=== PATIENT | male | born 1950 | race African-American/Black ===

== ENCOUNTER 2016-12-16 10:37 | Emergency (ER) | payer BC ==
--- NOTE | ~2016-12-16 | CN ---
Consultation Report [facility] [address] [place]. [address] NAME: LEE ANN HAZEL : [birth year] STATUS : [facility] PAT#: [id number] AGE: 65 ADM/REG DATE : 12/16/16 MR#: [id number] REPORT SERV DATE: 12/17/16 DICTATED BY: ANNIE VALDES DATE: 12/17/16 REPORT STATUS : Draft TRANSCRIBED BY: MODL DATE: 12/17/16 PULMONARY CONSULTATION DATE OF CONSULTATION: 12/16/2016 CHIEF COMPLAINT: Night sweats for three nights. HISTORY OF PRESENT ILLNESS: Mr. Winters is a previously healthy 65-year-old gentleman with a past medical history of smoking, who comes in with three days of having nights sweats, a new cough which has been going on for weeks, no worsening shortness of breath. The patient states that overall he does not feel any symptoms, other than these night sweats which have been progressively getting worse and that is when he presented to the emergency room. The patient stated that he presented to an urgent care center in the last 48 hours and was told he had a viral illness and that this should get better. No chest x-ray was done at that time. CT scan was done here, which shows a large left upper lobe 7 cm lung mass with what looks to be a postobstructive pneumonia. PAST MEDICAL HISTORY: Tobacco abuse. MEDICATIONS: No medications on file, the patient states he takes none. ALLERGIES: NO KNOWN DRUG ALLERGIES. SOCIAL HISTORY: The patient is , with kids. He is retired, he worked in the [employer] industry. He has been smoking since 1968 and around three years ago, he has cut down to less than one pack per day. Now, he is mostly smoking cigars; however, he is still smoking. FAMILY HISTORY: Other family members with coronary artery disease and diabetes. REVIEW OF SYSTEMS: All pertinent review of systems reviewed and is otherwise negative. PHYSICAL EXAMINATION: VITAL SIGNS: Afebrile, heart rate around 80s and 90s, respiratory rate around 15 to 20, oxygen saturation 98% on room air, blood pressure 120s over 60s. GENERAL: The patient is alert and oriented, sitting upright in bed in the emergency room, in no acute distress. HEENT: No cervical lymphadenopathy. PULMONARY: Lungs are clear, except with the left upper lobe crackle which is mild. No wheezing. CARDIAC: Regular rate. No murmurs. ABDOMEN: Soft, nontender, nondistended. EXTREMITIES: No lower extremity edema. Peripheral pulses noted. NEUROLOGIC: No focal neurological deficits. Consultation Report [place] [id number] [place] [id number] NAME: LEE ANN HAZEL : 50 STATUS : DEP PAT#: [id number] AGE: 65 ADM/REG DATE : 12/16/16 MR#: [id number] REPORT SERV DATE: 12/17/16 DICTATED BY: ANNIE VALDES DATE: 12/17/16 REPORT STATUS : Draft TRANSCRIBED BY: MODAnastasia DATE: 12/17/16 LABORATORY EXAMINATION: Normal kidney function and electrolytes, albumin 2.5, alkaline phosphatase 243. White blood cell count 22,000 with neutrophilia, mild anemia, platelet count is 102 and in 2016, it was 88. IMAGING DATA: CT scan of the lung shows a large left upper lobe hilar mass, concerning for a primary lung carcinoma. The patient also seems to have cirrhosis on that CT scan. ASSESSMENT AND PLAN: Mr. Hazel is a previously healthy 65-year-old male, who has a smoking history, who presents with night sweats and what is probably clinically a postobstructive pneumonia. At this moment in time, we will start him on Augmentin for that. However, we discussed the hilar mass and the need to biopsy that with the patient. 1. Postobstructive pneumonia: At this moment in time, we will start Augmentin, prescription has been written. 2. Left upper lobe hilar mass with possible necrosis, concerning for a primary lung carcinoma. At this moment in time, we will attempt to get a bronchoscopy with EBUS navigation in the next couple of days as an outpatient. This has already been arranged, the patient is aware of the date and time of this. The patient states he is not on any aspirin and so forth. The patient's best contact information is . The patient shall have a followup appointment with me in one month; however, we will review the results prior to that. 3. Probable new diagnosis of cirrhosis. The patient denied having alcohol use. He does have a low platelet count, this will be needing further evaluation. On CT scan, he has no ascites, however. No elevated bilirubin. Thank you very much for this consultation and allowing us to consult on this matter, please call us with any further questions or concerns. HFQ/MODL Annie Valdes MD / [id number] CC: Summer Hazel M.D.
[~2016-12-16 10:37] MED LIST: COZAAR100 MG PO; MAGOX4 PO; MOBIC15 MG PO; POTASSIUM PO
[2016-12-16 12:35] LABS: BASOPHILS 0.1 %; BASOPHILS ABSOLUTE 0.03 10/3/uL (0.0-0.16); EOSINOPHILS 0.4 %; HEMATOCRIT 36.5 % (40.0-51.0); HEMOGLOBIN 12.7 g/dL (13.6-17.8); IMMATURE GRANULOCYTES 0.7 %; IMMATURE GRANULOCYTES ABSOLUTE 0.15 10/3/uL (0.0-0.11); LYMPHOCYTES 6.5 %; LYMPHOCYTES ABSOLUTE 1.48 10/3/uL (0.67-4.30); MEAN CORPUS HGB CONC 34.8 g/dL (32.0-36.0); MEAN CORPUSCULAR HEMOGLOB 31.7 pg (26.0-34.0); MEAN PLATELET VOLUME 12.2 fL (9.2-13.0); MONOCYTES 5.7 %; MONOCYTES ABSOLUTE 1.29 10/3/uL (0.21-1.20); NEUTROPHILS 86.6 %; NEUTROPHILS ABSOLUTE 19.72 10/3/uL (2.02-8.40); PLATELET COUNT 102 10/3/uL (150-400); RBC DISTRIBUTION WIDTH 15.2 % (12.0-16.0); RED CELL COUNT 4.01 10/6/uL (4.7-6.1)
[2016-12-16 12:36] LABS: ER CBC TAT 0 Hrs 14 Mins; MANUAL DIFF NO %; WHITE BLOOD CELLS 22.8 10/3/uL (4.5-10.5)
[2016-12-16 12:39] LABS: BUN (BLOOD UREA NITROGEN) 12 MG/DL (6-23); CALCIUM, SERUM 8.7 MG/DL (8.5-10.4); CHLORIDE, SERUM 106 MMOL/L (96-112); CO2 (CARBON DIOXIDE) 24 MMOL/L (24-34); CREATININE 1.02 MG/DL (0.70-1.30); GFR AFRICAN AMERICAN 89 ML/MIN (>=60); GFR NON AFRICAN AMERICAN 77 ML/MIN (>=60); GLUCOSE, SERUM 79 MG/DL (60-99); POTASSIUM, SERUM 3.7 MMOL/L (3.5-5.3); SGOT(AST) 21 U/L (5-40); SGPT(ALT) 26 U/L (5-65); SODIUM, SERUM 140 MMOL/L (135-148); TOTAL BILIRUBIN 0.6 MG/DL (0-1.2); TOTAL PROTEIN 8.1 G/DL (6.0-8.5)
[2016-12-16 12:40] LABS: A/G RATIO 0.4 (0.7-1.9); ALBUMIN 2.5 G/DL (3.5-5.0); ALKALINE PHOSPHATASE 243 U/L (45-117); GLOBULIN 5.6 G/DL (2.5-4.1)
[2017-01-09] MEDS ORDERED: POTASSIUM GLUCO99 MG (14:28)
[2017-01-09] MEDS ORDERED: ANOROELLIPTA INH (14:29)
[2017-01-09] MEDS ORDERED: MAGOX4 PO (14:29)
[2017-01-09] MEDS ORDERED: ENDOCET1 TA3 PO (14:30)
[2017-01-09] MEDS ORDERED: METHOC750B PO (14:31)
== END 2016-12-16 16:57 | disposition home or self-care (01) ==
LOC: ER 10:37
PROVIDERS: Emergency Medicine
DX: R91.8 Other nonspecific abnormal finding of lung field (principal); D72.829 Elevated white blood cell count, unspecified; F17.200 Nicotine dependence, unspecified, uncomplicated; Z79.899 Other long term (current) drug therapy
CPT/HCPCS: 71020; 71260; 80053; 85025; 93005; 96372; 99284; A9270-GY; J1885; Q9967

== ENCOUNTER 2016-12-19 09:24 | Day surgery (SDC) | payer BC, MEDICARE ==
--- NOTE | ~2016-12-19 | EGD ---
EGD REPORT [facility] [address] [place] [address] NAME: LEE ANN HAZEL : 50 STATUS : [facility]#: [id number] AGE: 65 ADM/REG DATE : 12/19/16 MR#: [id number] REPORT SERV DATE: 12/19/16 DICTATED BY: TYRONE KIRBY DATE: 12/19/16 REPORT STATUS : Draft [facility]: [facility] DATE: 12/19/16 Pulmonology Patient Name: Lee Ann Hazel Procedure Date: 12/19/2016 12:43 PM Date of : 1950 Attending MD: JASSI KIRBY MD Procedure Date No Time: 12/19/2016 Procedure: EBUS/NAVIGATION BRONCHOSCOPY Indications: LAKHWINDER lung mass Providers: JASSI KIRBY MD Referring MD: LEWIS PETERS Medicines: Lidocaine 2% 20 mL Complications: No immediate complications Procedure: Pre-Anesthesia Assessment: - A History and Physical has been performed. Patient meds and allergies have been reviewed. The risks and benefits of the procedure and the sedation options and risks were discussed with the patient. All questions were answered and informed consent was obtained. Patient identification and proposed procedure were verified prior to the procedure by the physician and the nurse in the pre-procedure area in the procedure room. Mental Status Examination: alert and oriented. Airway Examination: normal oropharyngeal airway. Respiratory Examination: clear to auscultation. CV Examination: normal and RRR, no murmurs, no S3 or S4. ASA Grade Assessment: III - A patient with severe systemic disease. After reviewing the risks and benefits, the patient was deemed in satisfactory condition to undergo the procedure. The anesthesia plan was to use general anesthesia. Immediately prior to administration of medications, the patient was re-assessed for adequacy to receive sedatives. The heart rate, respiratory rate, oxygen saturations, blood pressure, adequacy of pulmonary ventilation, and response to care were monitored throughout the procedure. The physical status of the patient was re-assessed after the procedure. - ASA Grade Assessment: III - A patient with severe systemic disease. After obtaining informed consent,The procedure was accomplished without difficulty. The patient tolerated the procedure well. the Bronchoscope was introduced through the and advanced to the. the BF [id number] was introduced through the and advanced to the. Findings: EGD REPORT [address] [place]. [address] NAME: LEE ANN HAZEL : 50 STATUS : REG [facility] PAT#: [id number] AGE: 65 ADM/REG DATE : 12/19/16 MR#: [id number] REPORT SERV DATE: 12/19/16 DICTATED BY: TYRONE KIRBY DATE: 12/19/16 REPORT STATUS : Draft TRANSCRIBED BY: [employer] DATE: 12/19/16 The endotracheal tube is in good position. The visualized portion of the trachea is of normal caliber. The jaye is sharp. The tracheobronchial tree was examined to at least the first subsegmental level. Bronchial mucosa and anatomy are normal; there are no endobronchial lesions, and no secretions. EBUS TBNA of lymph node level 11R x 4 passes for cytology EBUS TBNA of lymph node level 7 x 4 passes for cytology EBUS TBNA of lymph node level 4L x 3 passes for cytology EBUS TBNA of lymph node level 11L x 4 passes for cytology Bronchoalveolar lavage was performed in the left upper lobe of the lung and sent for routine cytology. 180 mL of fluid were instilled. 40 mL were returned. The return was blood-tinged. Endobronchial biopsies were performed in the left upper lobe of the lung using a forceps and sent for histopathology examination. Five samples were obtained. Brushings were obtained in the left upper lobe of the lung and sent for routine cytology. One sample was obtained. The FiO2 was lowered to less than 40% and argon plasma coagulation therapy (0.8 L/min, 15 Bobby) was applied to the friable endobronchial lesion for destruction of tissue and hemostasis. Impression: Rapid On-Site Evaluation (PIO): Preliminary cytology is POSITIVE for malignancy (final results are pending). Recommendation: - Await test results. - Chest X-ray post-procedure. - Follow up with referring physician. - Refer to/consult with Oncology. - PET scan. - MRI of the brain with and without contrast - Complete pulmonary function tests to assess operability. Attending Participation: I personally performed the entire procedure. JASSI KIRBY MD 12/19/2016 1:49 PM This report has been signed electronically. Number of Addenda: 0 Note Initiated On: 12/19/2016 12:43 PM [address] [id number]
[2016-12-19 10:00] LABS: HEMATOCRIT 37.3 % (40.0-51.0); HEMOGLOBIN 12.9 g/dL (13.6-17.8); MEAN CORPUS HGB CONC 34.6 g/dL (32.0-36.0); MEAN CORPUSCULAR HEMOGLOB 30.6 pg (26.0-34.0); MEAN CORPUSCULAR VOLUME 88.6 fL (80-100); PLATELET COUNT 113 10/3/uL (150-400); RBC DISTRIBUTION WIDTH 15.3 % (12.0-16.0); RED CELL COUNT 4.21 10/6/uL (4.7-6.1); WHITE BLOOD CELLS 24.9 10/3/uL (4.5-10.5)
[2016-12-19 10:01] LABS: MANUAL DIFF YES %
[2016-12-19 10:07] LABS: PARTIAL THROMBO TIME 32.1 SEC (22.5-37.2)
[2016-12-19 10:08] LABS: INTERNATIONAL NORMAL RATI 1.2 UNITS (-); PROTIME (NOT ORD) 15.2 SEC (12.0-14.5)
[2016-12-19 10:23] LABS: BAND NEUTROPHILS 14 %; LYMPHOCYTES 9 %; LYMPHOCYTES ABSOLUTE (CALC) 2.24 10/3/uL (0.67-4.30); MONOCYTES 2 %; NEUTROPHILS ABSOLUTE (CALC) 22.16 10/3/uL (2.02-8.40); PLATELET ESTIMATE SLT DEC (ADEQUATE); RBC MORPHOLOGY NORM (NORMAL); SEGMENTED NEUTROPHIL (0) 75 %; TOTAL NUCLEATED CELLS 100; TOXIC GRANULATION 1+
[2017-01-09] MEDS ORDERED: POTASSIUM GLUCO99 MG (14:28)
[2017-01-09] MEDS ORDERED: MAGOX4 PO (14:29)
[2017-01-09] MEDS ORDERED: ANOROELLIPTA INH (14:29)
[2017-01-09] MEDS ORDERED: ENDOCET1 TA3 PO (14:30)
[2017-01-09] MEDS ORDERED: METHOC750B PO (14:31)
== END 2016-12-19 23:59 | disposition home or self-care (01) ==
LOC: DMU 09:24
PROVIDERS: Internal Medicine
PROC: 07974ZX Drainage of Thorax Lymphatic, Percutaneous Endoscopic Approach, Diagnostic (ICD-10-PCS; principal; 2016-12-19 11:30)
PROC: BB4CZZZ Ultrasonography of Mediastinum (ICD-10-PCS; 2016-12-19 11:30)
PROC: 0B988ZX Drainage of Left Upper Lobe Bronchus, Via Natural or Artificial Opening Endoscopic, Diagnostic (ICD-10-PCS; 2016-12-19 11:30)
PROC: 0BB88ZX Excision of Left Upper Lobe Bronchus, Via Natural or Artificial Opening Endoscopic, Diagnostic (ICD-10-PCS; 2016-12-19 11:30)
PROC: 0BBG8ZX Excision of Left Upper Lung Lobe, Via Natural or Artificial Opening Endoscopic, Diagnostic (ICD-10-PCS; 2016-12-19 11:30)
PROC: 0B5G8ZZ Destruction of Left Upper Lung Lobe, Via Natural or Artificial Opening Endoscopic (ICD-10-PCS; 2016-12-19 11:30)
DX: C34.12 Malignant neoplasm of upper lobe, left bronchus or lung (principal); N40.0 Benign prostatic hyperplasia without lower urinary tract symptoms; K76.6 Portal hypertension; K74.60 Unspecified cirrhosis of liver; F10.21 Alcohol dependence, in remission; F12.90 Cannabis use, unspecified, uncomplicated; F17.290 Nicotine dependence, other tobacco product, uncomplicated; D64.9 Anemia, unspecified; Z79.1 Long term (current) use of non-steroidal anti-inflammatories (NSAID); Z79.899 Other long term (current) drug therapy; Z79.2 Long term (current) use of antibiotics; Z98.890 Other specified postprocedural states; Z86.010 Personal history of colon polyps
CPT/HCPCS: 71010; 85025; 85610; 85730; 88112; 88173; 88305; 88333; 88341; 88342; 93005; A9270-GY; C1725; J2250; J2405; J2710; J3010

== ENCOUNTER 2017-01-16 18:00 | Emergency (ER) | payer BC, MEDICARE ==
--- NOTE | ~2017-01-16 | CN ---
Consultation Report [facility] [address] [place]. [address] NAME: LEE ANN HAZEL : 50 STATUS : [facility]#: [id number] AGE: 66 ADM/REG DATE : 01/16/17 MR#: [id number] REPORT SERV DATE: 01/17/17 DICTATED BY: TYLER MCKEON DATE: 01/16/17 REPORT STATUS : Draft TRANSCRIBED BY: MODAnastasia DATE: 01/16/17 DATE OF CONSULTATION: CONTINUATION: TOTAL CRITICAL CARE TIME: 92 minutes. REASON FOR EVALUATION: Acute stroke. HISTORY OF PRESENT ILLNESS: This is a 66-year-old male, who was brought to the emergency room with difficulty speaking and right-sided weakness. The patient's son and daughter provided additional history. The last known well appears to have been "four hours ago," however, it is quite possible that the patient's symptoms started earlier. The last time this family spoke to the patient was the night prior to admission. As per the patient's son, the patient was able to walk to the door to let him in, however, at that time was having difficulty speaking and was having right-sided weakness. As per paramedics who brought the patient to the hospital, his right-sided weakness seems to have evolved and became more pronounced. In the emergency room, the patient was noted to have no difficulty moving his right leg, however, had difficulty moving his right arm, right-sided neglect, and aphasia. The patient was taken to the CT on emergency basis, which showed evidence of two hypodense areas, one in the left middle cerebral artery which appeared to involve frontal and temporal lobe. He had area most likely subacute stroke in the right cerebellum. The patient's MRI showed no evidence of additional lesions; however, MRI was terminated in view to expedite transfer of the patient to [facility] [place]. The patient was transferred to the [place] after his case was discussed with stroke neurologist, Dr. Edwrads. His CTA of head showed evidence of high-grade stenosis or occlusion of anterior cerebral artery. Dr. Edwards was also informed that the patient was recently diagnosed with lung cancer, however, thus far has not started on any treatment for it. His cancer was discovered three weeks ago as per the patient's family. The patient presented with increasing cough, night sweats, and weight loss. He was evaluated on 12/17/2016 in the emergency room with above symptoms of cough, congestion, and some shortness of breath. Pulmonary consultation was requested at that time. As per his hospital records, the patient was found to have a large mass in the left hilum, which raise concern of primary lung cancer. 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 SOCIAL HISTORY: The patient has extensive history of smoking, stopped two years ago. There is no history of alcohol use. 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 FAMILY HISTORY: Significant for history of hypertension and ? coronary artery disease. There is no history of cancer and no history of strokes. ALLERGIES: NO KNOWN ALLERGY. MEDICATIONS: It is not clear whether the patient has been taking any medications. One of Consultation Report [address] [place]. [address] NAME: LEE ANN HAZEL : 50 STATUS : [facility]#: [id number] AGE: 66 ADM/REG DATE : 01/16/17 MR#: [id number] REPORT SERV DATE: 01/17/17 DICTATED BY: TYLER MCKEON DATE: 01/16/17 REPORT STATUS : Draft TRANSCRIBED BY: YOANA DATE: 01/16/17 the medications mentioned was lisinopril. REVIEW OF SYSTEMS: The patient's family stated that the patient has been complaining of difficulty with his balance in the last one to two days. The patient does not have any prior history of strokes or TIAs. He has had significant weight loss as mentioned above, increase of cough, and has no complaints suggestive of other neurological deficit. No history of difficulty with speech prior to today. No difficulty with vision, chewing, swallowing with weakness or numbness involving his face or extremities. There is no history of recent head trauma. No recent history of traveling outside of this area. LABORATORY DATA: Laboratory studies which were obtained in the emergency room showed WBC count of 38.5 thousand, hemoglobin 13.3, hematocrit 38.0, MCV 88.6, platelet count 114,000 with 34.77 neutrophils and 1.87 lymphocytes, immature granulocytes 0.32. Comprehensive metabolic tests show sodium of 138, potassium 3.7, chloride 101, carbon dioxide 24, BUN 17, creatinine 0.84, glomerular filtration rate 106, total protein 7.9, albumin 2.7, alkaline phosphatase 424, AST 74, troponins 0.67. CT of the head and CTA of the brain were reviewed as mentioned above, which showed occlusion or high-grade stenosis in the anterior branch of the left MCA with an acute infarct involving left frontal and temporal lobes. Subacute infarct was seen in the right cerebellum. No hemorrhage was noted. PHYSICAL EXAMINATION: VITAL SIGNS: Stable. Blood pressure 120-150 systolic, diastolic 70; pulse on palpation, heart rate of approximately 72 beats per minute; respirations 20, temperature was not tested. HEAD AND NECK: Showed him to be normocephalic. There was no evidence of trauma. Auscultation of the neck showed no evidence of bruits. Eye: Sclerae were not icteric. Conjunctiva was pink. ENT: Showed tongue to be midline. Neck was supple. There is no Kernig or Brudzinski. Cervical range of motion appeared intact. The patient had gaze preference to the left. CHEST: Difficult to auscultate chest due to decreased breath sounds at bases. EXTREMITIES: The patient was moving his left upper and lower extremity without any difficulty. He had no difficulty moving his right leg, however, right arm was flaccid. NEUROLOGICAL: His deficit was estimated to be on the NIH stroke scale. Right upper extremity weakness, partial weakness in right lower extremity. Aphasia which appeared to be expressive, neglect of the right side. Some difficulty with sensory discrimination on the right. Cerebellar exam on the left showed no evidence of ataxia. The patient's eyes did cross midline. Pupils were 2-3 mm, equal, reactive to light and accommodation. The patient had right facial weakness. Total NIH scale 12-15, it is not clear whether the patient's right leg weakness has been fluctuating. The patient follow commands on the left, neglect on the right as mentioned above. IMPRESSION: 1. 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 Consultation Report [address] [place]. [address] NAME: LEE ANN HAZEL : 50 STATUS : [facility] PAT#: [id number] AGE: 66 ADM/REG DATE : 01/16/17 MR#: [id number] REPORT SERV DATE: 01/17/17 DICTATED BY: TYLER MCKEON DATE: 01/16/17 REPORT STATUS : Draft TRANSCRIBED BY: YOANA DATE: 01/16/17 2. Subacute infarct involving right cerebellum. 3. Recently diagnosed lung cancer. 4. Probable hypercoagulable state, which increase the patient's risk of stroke. The picture of multiple strokes in the staggering time frame are likewise suggestive of cancer to be an underlying and perhaps driving force in view of hypercoagulable state for series of strokes. Recently diagnosed lung cancer with possible bony metastases. 5. Leukocytosis, most likely secondary to cancer. RECOMMENDATION AND PLAN: The patient's case was discussed with stroke neurologist at [place], Dr. Edwards, who accepted the patient for interventional treatment of occlusion of anterior portion of left MCA territory. The treatment perhaps can reverse some of the patient's aphasia and right-sided weakness. Unfortunately, the patient was not a candidate for tPA in view of prolonged duration of his symptoms. The patient's CT of the head showed relatively well-defined hypodense area of his acute stroke suggestive of lesion to be present at least five to six hours. The plan was discussed with the patient's family. The patient was transferred from the emergency room directly to [facility] [place] to the care of Dr. Edwards, Stroke Neurology. Thank you for allowing us to participate in this patient's care. EULALIA/YOANA Tyler Mckeon MD / [id number]
[~2017-01-16 18:00] MED LIST changes: +ANOROELLIPTA INH; +ENDOCET1 TA3 PO; +METHOC750B PO; +POTASSIUM GLUCO99 MG
[2017-01-16] MEDS ORDERED: DEX4 PO (18:13)
[2017-01-16] MEDS ORDERED: ENDOCET1 TA3 (18:14)
[2017-01-16] MEDS ORDERED: ANOROELLIPTA (18:14)
[2017-01-16] MEDS ORDERED: NORCO1 TAB (18:14)
[2017-01-16] MEDS ORDERED: COZAAR100 MG (18:15)
[2017-01-16] MEDS ORDERED: METHOC750B (18:15)
[2017-01-16] MEDS ORDERED: PROVHFA (18:15)
[2017-01-16] MEDS ORDERED: PRILOSEC40 MG (18:16)
[2017-01-16] MEDS ORDERED: POTASSIUM (18:16)
[2017-01-16] MEDS ORDERED: MOBIC15 MG (18:17)
[2017-01-16] MEDS ORDERED: LEVITRA20 MG (18:17)
[2017-01-16] MEDS ORDERED: FLUNISOLIDE 0.025% (18:17)
[2017-01-16] MEDS ORDERED: *UNABLE3 (18:18)
[2017-01-16 18:41] LABS: BASOPHILS 0.1 %; BASOPHILS ABSOLUTE 0.05 10/3/uL (0.0-0.16); EOSINOPHILS 0.3 %; EOSINOPHILS ABSOLUTE 0.12 10/3/uL (0.0-0.53); HEMOGLOBIN 13.3 g/dL (13.6-17.8); IMMATURE GRANULOCYTES 0.8 %; IMMATURE GRANULOCYTES ABSOLUTE 0.32 10/3/uL (0.0-0.11); LYMPHOCYTES 3.5 %; LYMPHOCYTES ABSOLUTE 1.34 10/3/uL (0.67-4.30); MEAN CORPUSCULAR VOLUME 88.6 fL (80-100); MEAN PLATELET VOLUME 11.5 fL (9.2-13.0); MONOCYTES 4.9 %; MONOCYTES ABSOLUTE 1.87 10/3/uL (0.21-1.20); NEUTROPHILS 90.4 %; NEUTROPHILS ABSOLUTE 34.77 10/3/uL (2.02-8.40); PLATELET COUNT 114 10/3/uL (150-400); RBC DISTRIBUTION WIDTH 15.9 % (12.0-16.0); RED CELL COUNT 4.29 10/6/uL (4.7-6.1)
[2017-01-16 18:42] LABS: WHITE BLOOD CELLS 38.5 10/3/uL (4.5-10.5)
[2017-01-16 18:43] LABS: MANUAL DIFF NO %
[2017-01-16 18:51] LABS: INTERNATIONAL NORMAL RATI 1.4 UNITS (-); PROTIME (NOT ORD) 17.3 SEC (12.0-14.5)
[2017-01-16 18:52] LABS: PARTIAL THROMBO TIME 34.8 SEC (22.5-37.2)
[2017-01-16 18:58] LABS: A/G RATIO 0.5 (0.7-1.9); ALBUMIN 2.7 G/DL (3.5-5.0); CALCIUM, SERUM 9.4 MG/DL (8.5-10.4); CHLORIDE, SERUM 101 MMOL/L (96-112); CO2 (CARBON DIOXIDE) 24 MMOL/L (24-34); CREATININE 0.84 MG/DL (0.70-1.30); GFR AFRICAN AMERICAN 106 ML/MIN (>=60); GFR NON AFRICAN AMERICAN 91 ML/MIN (>=60); GLOBULIN 5.2 G/DL (2.5-4.1); POTASSIUM, SERUM 3.7 MMOL/L (3.5-5.3); SGOT(AST) 74 U/L (5-40); SGPT(ALT) 53 U/L (5-65); SODIUM, SERUM 138 MMOL/L (135-148); TOTAL PROTEIN 7.9 G/DL (6.0-8.5)
[2017-01-16 18:59] LABS: ALKALINE PHOSPHATASE 424 U/L (45-117); BUN (BLOOD UREA NITROGEN) 17 MG/DL (6-23); GLUCOSE, SERUM 96 MG/DL (60-99)
[2017-01-16 19:00] LABS: TROPONIN I 0.67 NG/ML (<0.05)
[2017-01-16 19:01] LABS: BAND NEUTROPHILS 1 %; ER DIFF TAT 0 Hrs 25 Mins; LYMPHOCYTES 1 %; LYMPHOCYTES ABSOLUTE (CALC) 0.39 10/3/uL (0.67-4.30); MONOCYTES 2 %; MONOCYTES ABSOLUTE (CALC) 0.77 10/3/uL (0.21-1.20); NEUTROPHILS ABSOLUTE (CALC) 37.35 10/3/uL (2.02-8.40); SEGMENTED NEUTROPHIL (0) 96 %; TOTAL NUCLEATED CELLS 100
[2017-01-16 19:02] LABS: PLATELET ESTIMATE SLT DEC (ADEQUATE); RBC MORPHOLOGY NORM (NORMAL)
[2017-01-17 08:00] LABS: CREATININE 0.5 MG/DL (0.70-1.30)
== END 2017-01-16 19:25 | disposition short-term general hospital (02) ==
LOC: ER 18:00
PROVIDERS: Emergency Medicine
DX: I63.9 Cerebral infarction, unspecified (principal); F17.200 Nicotine dependence, unspecified, uncomplicated; Z79.899 Other long term (current) drug therapy
CPT/HCPCS: 36415; 70450; 70496; 70498; 70553; 71010; 80053; 84484; 85025; 85610; 85730; 86850; 86870; 86900; 86901; 99285; A9577; Q9967